=== PATIENT | male | born 1950 | race Caucasian/White ===

== ENCOUNTER → 2016-12-27 | Outpatient (CLI) | payer BC ==
[~2016-12-27] MED LIST: LISI20TA PO; LOVA20TA PO; PRIL20TA2
--- NOTE | 2016-12-27 17:20 | RADRPT ---
EXAM DATE/TIME: 12/27/2016 16:02 [facility] COMPARISON : No previous studies available for comparison. INDICATIONS : Evaluate for possible renal cryo-ablation . HISTORY OF PRESENT ILLNESS: 66-year-old with incidentally discovered 2.4 cm mass arising from the midpole the right kidney. The p atient underwent CT and MRI evaluation of this for workup. Imaging was presented for evaluation for p ossible cryoablation. IMAGING STUDIES: Post contrast CT imaging and MRI imaging of the abdomen performed 10/2016 at [facility] was reviewed. ASSESSMENT: There is a 2.4 cm enhancing mass arising from the posterior aspect of the midpole the right kidney. T his lesion would be readily amenable to cryoablation for treatment. PLAN: Patient will be scheduled for the procedure. TIME SPENT: 10 minutes. Raffaele Stanford MD on December 27, 2016 at 17:15 Board Certified Radiologist. This report was verified electronically.
== END ==
LOC: HRAD 15:07
PROVIDERS: ATTEND Urology
DX: N28.89 Other specified disorders of kidney and ureter (principal)

== ENCOUNTER 2017-01-05 12:27 | Day surgery (SDC) | payer BC ==
[2017-01-05 12:44] VITALS: BP 140/93; PULSE 66; RESP 20; TEMP 97.7; O2SAT 92
--- NOTE | 2017-01-05 13:49 | RADRPT ---
EXAM DATE/TIME: 01/05/2017 00:00 [facility] COMPARISON : INDICATIONS : Cryo Consult OBJECTIVE: Temperature: 97.7 Heart Rate: 66 Blood Pressure: 140/93 Respiratory: 20 Oximetry: 92 HISTORY OF PRESENT ILLNESS: 66 year-old with a 2.4 cm mass arising from the right kidney. Patient has undergone previous CT, MRI and biopsy. 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 PAST MEDICAL HISTORY : 1. Hypertension. 2. Hypercholesterolemia. 3. Prostate Ca 4. Renal Mass PAST SURGICAL HISTORY : 1. Prostatectomy 2. Bilateral Ing hernia repair 3. Arthroscopy Left knee 4. Choley 5. Cyst removal left neck 6. left tonsilectomy SOCIAL HISTORY : Social alcohol use. Tobacco;former. ALLERGIES: 1. NKDA MEDICATIONS: 1. Zestoretic (Lisinopril/HCTZ) 20/10 mg q.d. 2. Lovastatin 20 mg q.d. 3. Prilosec 20 mg q.d. 4. Vit B, C, D q.d. Physical examination: This was deferred. Patient had recent physical examination performed by Dr. Mayer. Patient denies linette st pain, shortness of breath or other significant medical symptoms. IMAGING STUDIES: The patient's outpatient CT scan and MRI have been reviewed. These confirm a 2.4 cm mass arising from the right kidney which has been previously biopsied and proven renal cell carcinoma. ASSESSMENT: 66 year-old with a 2.4 cm mass arising from the posterior aspect of the right kidney biopsy proven cl ear cell variant renal cell carcinoma grade 2/4. This lesion is in a location which would be amenable to cryoablation. PLAN: The patient will be scheduled for ablation of the right renal mass. TIME SPENT: 20 minutes Raffaele Stanford MD on January 05, 2017 at 13:42 Board Certified Radiologist. This report was verified electronically.
[2017-01-06] MEDS ORDERED: LOVA20TA PO (08:05)
[2017-01-06] MEDS ORDERED: LISI20TA PO (08:05)
[2017-01-06] MEDS ORDERED: PRIL20TA2 (08:05)
== END 2017-01-05 14:00 | disposition home or self-care (01) ==
LOC: HROP 12:27 → HRIP 12:31 → HROP 14:00
PROVIDERS: ATTEND Urology
DX: C64.1 Malignant neoplasm of right kidney, except renal pelvis (principal)

== ENCOUNTER 2017-01-06 07:30 | Day surgery (SDC) | payer BC ==
[~2017-01-06] VITALS: Ht 177.8 cm; Wt 93.2 kg
[2017-01-06] MEDS ORDERED: PRIL20TA2 (08:05)
[2017-01-06] MEDS ORDERED: LISI20TA PO (08:05)
[2017-01-06] MEDS ORDERED: LOVA20TA PO (08:05)
[2017-01-06 08:09] VITALS: BP 149/98; PULSE 62; RESP 20; TEMP 97.8; O2SAT 93
[2017-01-06] MEDS ORDERED: SODIUM CHLOR 0.9% 1000 ML INJ 1,000 ML IV SCH (08:30)
[2017-01-06] MEDS ORDERED: ceFAZolin 2 GM PREMIX 50 ML IV SCH (08:30)
[2017-01-06 09:05] LABS: BICARBONATE 24.5 MEQ/L (21.0-32.0); POTASSIUM 3.6 MEQ/L (3.5-5.1)
[2017-01-06] MEDS ORDERED: CHLORHEXIDINE GLUCONATE 2 % 1 PACK (2 CLOTHS) TOPICAL PRN (09:30)
[2017-01-06] MEDS ORDERED: POVIDONE IODINE 5% (ANTISEPSIS KIT) 4 APPLICATIONS EACH NARE PRN (09:30)
[2017-01-06] MEDS ORDERED: LACTATED RINGER'S 1000 ML IV PRN (09:30)
[2017-01-06] MEDS ORDERED: SODIUM CHLORID 0.9% 500 ML IV PRN (09:30)
[2017-01-06] MEDS ORDERED: INSULIN HUMAN REGULAR 1,000 UNITS/10 ML VIAL SQ PRN (09:30)
[2017-01-06] MEDS ORDERED: METOPROLOL TARTRATE 25 MG TAB PO PRN (09:30)
[2017-01-06] MEDS ORDERED: LIDOCAINE 1%/EPINEPHrine 1:100,000 SOLN 20 ML VIAL ONE (10:35)
--- NOTE | 2017-01-06 12:16 | PD.RAD ---
Post Procedure Progress Note Pre Procedure Diagnosis: (1) Cancer of right kidney, except renal pelvis Post Procedure Diagnosis: (1) Cancer of right kidney, except renal pelvis Procedure Date: Jan 06, 2017 Supervising Radiologist: Raffaele Stanford Anesthesia: General, Local Plan of Activity Patient to Unit: PACU Patient Condition: Good Additional Comments: PT post ablation of a 2cm right renal mass PT tolerated the procedure well. No complication evident on the follow up CT See PACS Report for procedural detail/treatment Raffaele Stanford MD Jan 06, 2017 12:16
[2017-01-06] MEDS ORDERED: DO NOT ADM ANY ANTICOAGULANT DRUGS PRN (12:40)
[2017-01-06] MEDS ORDERED: MIDAZOLAM HCL 2 MG/2 ML VIAL ONE (12:51)
[2017-01-06] MEDS ORDERED: fentaNYL CITRATE 250 MCG/5 ML AMP ONE (12:51)
[2017-01-06 13:23] LABS: AUTOMATED NEUTROPHIL # 5.3 TH/MM3 (1.8-7.7); BASOPHIL % 0.4 % (0.0-2.0); EOSINOPHIL # 0.2 TH/MM3 (0-0.4); EOSINOPHIL % 2.8 % (0.0-4.0); HEMATOCRIT 42.2 % (39.0-51.0); HEMO FLAGS DIFF FINAL; LYMPH % 20.7 % (9.0-44.0); LYMPHOCYTE # 1.6 TH/MM3 (1.0-4.8); MEAN CELL VOLUME 89.3 FL (80.0-100.0); MEAN CORPUSCULAR HEMOGLOBIN 30.2 PG (27.0-34.0); MEAN CORPUSCULAR HGB CONC 33.8 % (32.0-36.0); MONO % 9.6 % (0.0-8.0); NEUT % 66.5 % (16.0-70.0); PLATELET COUNT 159 TH/MM3 (150-450); RED BLOOD COUNT 4.72 MIL/MM3 (4.50-5.90); RED CELL DISTRIBUTION WIDTH 13.6 % (11.6-17.2); WHITE BLOOD COUNT 7.9 TH/MM3 (4.0-11.0)
[2017-01-06 13:30] VITALS: BP 112/72; PULSE 50; RESP 18; TEMP 97.5; O2SAT 97
--- NOTE | 2017-01-06 13:41 | RADRPT ---
EXAM DATE/TIME: 01/06/2017 11:15 INDICATIONS : Right renal mass. Anesthesia and pain control was provided by the Anesthesia department. DEVICE(S): 1.) Cryoablation probe 24mm MEDICAL HISTORY : Carcinoma, prostate. Renal cancer SURGICAL HISTORY : Cardiac surgery ENCOUNTER: Initial ACUITY: 1 day PAIN SCORE: 0/10 LOCATION: Right flank PROCEDURE : 1. CT guided cryoablation. Under sterile conditions and using aseptic technique with CT guidance the mass was localized and sati sfactory approach was taken to access the lesion. Using automated exposure control and adjustment of the mA and/or kV according to patient size, radiation dose was kept as low as reasonably achievable to obtain optimal diagnostic quality images. A single [employer] was advanced through the skin into the lesion without difficulty. A freeze-gil w, freeze-thaw technique was employed and serial imaging demonstrated an ice ball encompassing the en tire lesion. Post procedure images demonstrate expected postoperative changes without evidence of he matoma. CONCLUSION: Uncomplicated cryoablation as above. Raffaele Stanford MD on January 06, 2017 at 13:37 Board Certified Radiologist. This report was verified electronically.
--- NOTE | 2017-01-06 13:50 | EKG ---
Date Performed: 01/06/2017 Time Performed: 08:31:39 PTAGE: 66 years EKG: SINUS BRADYCARDIA RIGHT BUNDLE BRANCH BLOCK ABNORMAL ECG NO PREVIOUS TRACING DOCTOR: Alison Mueller Interpretating Date/Time 01/06/2017 13:44:11
[2017-01-06 14:00] VITALS: BP 116/73; PULSE 58; RESP 16; O2SAT 94
[2017-01-06 14:30] VITALS: BP 109/55; PULSE 60; RESP 18; O2SAT 91
[2017-01-06 15:14] LABS: AUTOMATED NEUTROPHIL # 8.7 TH/MM3 (1.8-7.7); BASOPHIL % 0.2 % (0.0-2.0); EOSINOPHIL # 0.1 TH/MM3 (0-0.4); EOSINOPHIL % 1.2 % (0.0-4.0); HEMATOCRIT 42.1 % (39.0-51.0); HEMO FLAGS DIFF FINAL; LYMPH % 11.3 % (9.0-44.0); LYMPHOCYTE # 1.2 TH/MM3 (1.0-4.8); MEAN CELL VOLUME 89.7 FL (80.0-100.0); MEAN CORPUSCULAR HEMOGLOBIN 30.3 PG (27.0-34.0); MEAN CORPUSCULAR HGB CONC 33.8 % (32.0-36.0); MONO % 5.8 % (0.0-8.0); NEUT % 81.5 % (16.0-70.0); PLATELET COUNT 173 TH/MM3 (150-450); RED BLOOD COUNT 4.69 MIL/MM3 (4.50-5.90); RED CELL DISTRIBUTION WIDTH 13.6 % (11.6-17.2); WHITE BLOOD COUNT 10.6 TH/MM3 (4.0-11.0)
[2017-01-06 15:30] VITALS: BP 118/57; PULSE 68; RESP 18; O2SAT 94
[2017-01-06 16:30] VITALS: BP 104/63; PULSE 62; RESP 18; O2SAT 95
== END 2017-01-06 17:00 | disposition home or self-care (01) ==
LOC: HRAD 07:30 → HRIP 07:31 → HRAD 17:00
PROVIDERS: ATTEND Urology
DX: C64.1 Malignant neoplasm of right kidney, except renal pelvis (principal); Z01.810 Encounter for preprocedural cardiovascular examination; Z01.818 Encounter for other preprocedural examination
CPT/HCPCS: 50593; 77013; 80048; 85025; 93005; C2618; J0690; J2250; J3010; J7030

== ENCOUNTER 2017-01-13 12:52 | Day surgery (SDC) | payer BC ==
[2017-01-13 13:00] VITALS: BP 129/83; PULSE 65; RESP 20; TEMP 98.4; O2SAT 95
== END 2017-01-13 13:20 | disposition home or self-care (01) ==
LOC: HROP 12:52 → HRIP 12:55 → HROP 13:20
PROVIDERS: ATTEND Radiology Body Imaging
DX: Z08 Encounter for follow-up examination after completed treatment for malignant neoplasm (principal)

== ENCOUNTER → 2017-12-05 | Outpatient (CLI) | payer OTHER, MEDICARE ==
--- NOTE | 2017-12-09 10:08 | RADRPT ---
EXAM DATE: 12/06/2017 10:38 AM EDT AGE/SEX: 67 years / Male INDICATIONS: Evaluate patient images and chart for possible RIGHT renal biopsy and ablation. The patient has a solid mass at margin of previously treated region in the posterior right kidney con sistent with local recurrence post previous cryoablation treatment. The recurrence does appear amenab le to repeat cryoablation. Electronically signed by: Jeyson Benitez MD 12/09/2017 10:07 AM EDT
== END ==
LOC: HRAD 16:15
PROVIDERS: ATTEND Urology
DX: N28.89 Other specified disorders of kidney and ureter (principal)

== ENCOUNTER 2017-12-20 07:08 | Day surgery (SDC) | payer OTHER ==
[~2017-12-20] VITALS: Ht 177.8 cm; Wt 93.2 kg
[2017-12-20 07:10] VITALS: BP 155/95; PULSE 60; RESP 20; TEMP 98.1; O2SAT 94
[2017-12-20] MEDS ORDERED: METOPROLOL TARTRATE 25 MG TAB PO PRN (07:45)
[2017-12-20] MEDS ORDERED: LACTATED RINGER'S 1000 ML IV PRN (07:45)
[2017-12-20] MEDS ORDERED: SODIUM CHLORID 0.9% 500 ML IV PRN (07:45)
[2017-12-20] MEDS ORDERED: LISI40TA PO (07:53)
[2017-12-20] MEDS ORDERED: HYDR12.57 PO (07:53)
[2017-12-20] MEDS ORDERED: LOVA20TA PO (07:53)
[2017-12-20] MEDS ORDERED: SODIUM CHLOR 0.9% 1000 ML INJ 1,000 ML IV SCH (08:00)
[2017-12-20] MEDS ORDERED: ceFAZolin 2 GM PREMIX 50 ML IV SCH ×2 (08:00)
[2017-12-20] MEDS ORDERED: VANCOMYCIN 1000 MG/NS 250 ML (for <70 kg) IV SCH ×2 (08:00)
[2017-12-20] MEDS ORDERED: CHLORHEXIDINE GLUCONATE 4% SOLN 120 ML BTL TOPICAL SCH (08:00)
[2017-12-20 08:12] LABS: AUTOMATED NEUTROPHIL # 5.7 TH/MM3 (1.8-7.7); BASOPHIL % 0.3 % (0.0-2.0); EOSINOPHIL # 0.2 TH/MM3 (0-0.4); EOSINOPHIL % 3.1 % (0.0-4.0); HEMATOCRIT 44.1 % (39.0-51.0); HEMOGLOBIN 15.1 GM/DL (13.0-17.0); LYMPH % 15.7 % (9.0-44.0); LYMPHOCYTE # 1.2 TH/MM3 (1.0-4.8); MEAN CELL VOLUME 88.8 FL (80.0-100.0); MEAN CORPUSCULAR HEMOGLOBIN 30.4 PG (27.0-34.0); MEAN CORPUSCULAR HGB CONC 34.2 % (32.0-36.0); MEAN PLATELET VOLUME 8.7 FL (7.0-11.0); MONOCYTE # 0.6 TH/MM3 (0-0.9); NEUT % 72.9 % (16.0-70.0); PLATELET COUNT 189 TH/MM3 (150-450); RED BLOOD COUNT 4.97 MIL/MM3 (4.50-5.90); RED CELL DISTRIBUTION WIDTH 13.5 % (11.6-17.2); WHITE BLOOD COUNT 7.8 TH/MM3 (4.0-11.0)
[2017-12-20 08:25] LABS: PROTHROMBIN TIME - PATIENT 10.4 SEC (9.8-11.6)
[2017-12-20 08:44] LABS: BICARBONATE 23.2 MEQ/L (21.0-32.0); CALCIUM 9.3 MG/DL (8.5-10.1); CREATININE 0.79 MG/DL (0.60-1.30)
[2017-12-20] MEDS ORDERED: IOHEXOL 350 MG/ML 10 ML VIAL (for RAD DIAG) IVCONTRAST ONE (10:45)
[2017-12-20] MEDS ORDERED: MIDAZOLAM HCL 2 MG/2 ML VIAL ONE (12:37)
[2017-12-20] MEDS ORDERED: MORPHINE SULFATE 4 MG/ML INJ ONE (12:38)
[2017-12-20 13:15] VITALS: BP 116/59; PULSE 61; RESP 16; TEMP 98.2; O2SAT 95
[2017-12-20] MEDS ORDERED: DO NOT ADM ANY ANTICOAGULANT DRUGS PRN (13:15)
[2017-12-20 13:30] VITALS: BP 102/58; PULSE 59; RESP 16; O2SAT 95
[2017-12-20 14:00] VITALS: BP 126/71; PULSE 59; RESP 16; O2SAT 95
[2017-12-20 14:08] LABS: AUTOMATED NEUTROPHIL # 11.3 TH/MM3 (1.8-7.7); BASOPHIL % 0.2 % (0.0-2.0); EOSINOPHIL % 0.3 % (0.0-4.0); HEMATOCRIT 43.4 % (39.0-51.0); HEMOGLOBIN 14.6 GM/DL (13.0-17.0); LYMPH % 4.3 % (9.0-44.0); LYMPHOCYTE # 0.5 TH/MM3 (1.0-4.8); MEAN CELL VOLUME 89.1 FL (80.0-100.0); MEAN CORPUSCULAR HEMOGLOBIN 30.1 PG (27.0-34.0); MEAN CORPUSCULAR HGB CONC 33.8 % (32.0-36.0); MEAN PLATELET VOLUME 8.9 FL (7.0-11.0); MONOCYTE # 0.2 TH/MM3 (0-0.9); NEUT % 93.2 % (16.0-70.0); PLATELET COUNT 189 TH/MM3 (150-450); RED BLOOD COUNT 4.87 MIL/MM3 (4.50-5.90); RED CELL DISTRIBUTION WIDTH 13.8 % (11.6-17.2); WHITE BLOOD COUNT 12.1 TH/MM3 (4.0-11.0)
[2017-12-20 14:30] VITALS: BP 128/72; PULSE 63; RESP 20
[2017-12-20 14:36] LABS: BANDS 11 % (0-6); LYMPHOCYTES 5 % (9-44); MONOCYTES 1 % (0-8); NEUTROPHIL # MANUAL DIFF 11.4 TH/MM3 (1.8-7.7); POLYS (SEG NEUTROPHILS) 83 % (16-70)
[2017-12-20 15:32] LABS: AUTOMATED NEUTROPHIL # 12.3 TH/MM3 (1.8-7.7); BASOPHIL % 0.1 % (0.0-2.0); EOSINOPHIL % 0.2 % (0.0-4.0); HEMOGLOBIN 14.7 GM/DL (13.0-17.0); LYMPH % 4.3 % (9.0-44.0); LYMPHOCYTE # 0.6 TH/MM3 (1.0-4.8); MEAN CELL VOLUME 89.1 FL (80.0-100.0); MEAN CORPUSCULAR HEMOGLOBIN 30.4 PG (27.0-34.0); MEAN CORPUSCULAR HGB CONC 34.1 % (32.0-36.0); MEAN PLATELET VOLUME 9.1 FL (7.0-11.0); MONO % 1.4 % (0.0-8.0); MONOCYTE # 0.2 TH/MM3 (0-0.9); PLATELET COUNT 190 TH/MM3 (150-450); RED BLOOD COUNT 4.82 MIL/MM3 (4.50-5.90); RED CELL DISTRIBUTION WIDTH 13.8 % (11.6-17.2)
--- NOTE | 2017-12-20 17:22 | RADRPT ---
EXAM DATE: 12/20/2017 1:07 PM EDT AGE/SEX: 67 years / Male INDICATIONS: Right renal mass CLINICAL DATA: This is the patient's initial encounter. Patient reports that signs and symptoms have been present for 1 day and indicates a pain score of 0/10. MEDICAL/SURGICAL HISTORY: Carcinoma, prostatic. Hypertension. None. COMPARISON: No prior [facility] exams available for comparison. BIOPSY SITE: Right renal Patient was premedicated per protocol for underlying contrast media allergy. DEVICE(S): 18 gauge Temno core biopsy needle One Prophylactic antibiotics were administered with appropriate pre-procedure timing. . . PROCEDURE: CT guided Right renal biopsy Prior to the procedure informed consent was obtained. Any appropriate prior imaging studies were rev iewed. Using automated exposure control and adjustment of the mA and/or kV according to patient size, radiat ion dose was kept as low as reasonably achievable to obtain optimal diagnostic quality images. DICOM format image data is available electronically for review and comparison. The site was prepped in a sterile fashion. Full sterile technique was used, including cap, mask, vineet rile gloves and gown and a large sterile sheet. Hand hygiene and 2% chlorhexidine and/or betadine/al cohol prep was utilized per protocol for cutaneous antisepsis. The skin and subcutaneous tissues wer e infiltrated with local anesthetic solution. With CT guidance the previously identified target was localized. Biopsy was performed using the presc ribed needle as above. The patient subsequently underwent cryoablation treatment of the lesion in question. Please see that separate report for further details. Follow-up CT scan reveals no hemorrhage. The patient tolerated the procedure well and there were no complications. The patient was returned to the Radiology Outpatient Unit in stable condition. CONCLUSION: Uncomplicated CT guided core biopsy of solid right renal mass as above.. Electronically signed by: Jeyson Benitez MD 12/20/2017 5:20 PM EDT
--- NOTE | 2017-12-20 17:25 | RADRPT ---
EXAM DATE: 12/20/2017 12:53 PM EDT AGE/SEX: 67 years / Male INDICATIONS: Right renal mass CLINICAL DATA: This is the patient's initial encounter. Patient reports that signs and symptoms have been present for 1 day and indicates a pain score of 0/10. MEDICAL/SURGICAL HISTORY: Carcinoma, prostatic. Hypertension. None. Anesthesia and pain control was provided by the Anesthesia department. DEVICE(S): 18 gauge perc 17 Cryoablation probe x2 Prophylactic antibiotics were administered with appropriate pre-procedure timing. . . COMPARISON: No prior [facility] exams available for comparison. PROCEDURE : 1. CT guided cryoablation. 2. 3. Under sterile conditions and using aseptic technique with CT guidance the mass was localized and sati sfactory approach was taken to access the lesion. Using automated exposure control and adjustment of the mA and/or kV according to patient size, radiation dose was kept as low as reasonably achievable to obtain optimal diagnostic quality images. DICOM format image data is available electronically for review and comparison. noodls Cryoprobes were employed using percutaneous technique employing the prescribed probes. A freeze-thaw, freeze-thaw technique was employed and serial imaging demonstrated an ice ball encomp assing the entire lesion. Post procedure images demonstrate expected postoperative changes without e vidence of hematoma. CONCLUSION: Uncomplicated cryoablation as above. Electronically signed by: Jeyson Benitez MD 12/20/2017 5:24 PM EDT
[2017-12-20] MEDS ORDERED: CLOPIDOGREL 75 MG TAB PO SCH (17:45)
[2017-12-20] MEDS ORDERED: ASPIRIN 81 MG CHEW TAB CHEW ONE (17:45)
== END 2017-12-20 18:00 | disposition home or self-care (01) ==
LOC: HRAD 07:08 → HRIP 07:13 → HRAD 18:00
PROVIDERS: ATTEND Urology
DX: C64.1 Malignant neoplasm of right kidney, except renal pelvis (principal); C61 Malignant neoplasm of prostate; I10 Essential (primary) hypertension; Z01.818 Encounter for other preprocedural examination
CPT/HCPCS: 50200; 50593; 77012; 77013; 80048; 85025; 85027; 85610; 85730; 88305; C2618; J2250; J2270; J3010; Q9967; 85007

== ENCOUNTER 2017-12-27 13:04 | Day surgery (SDC) | payer OTHER ==
[~2017-12-27 13:04] MED LIST changes: +HYDR12.57 PO; +LISI40TA PO
[2017-12-27 13:19] VITALS: BP 137/70; PULSE 80; RESP 18; TEMP 98.3; O2SAT 93
== END 2017-12-27 13:34 | disposition home or self-care (01) ==
LOC: HROP 13:04 → HRIP 13:06 → HROP 13:34
PROVIDERS: ATTEND Radiology Body Imaging
DX: C64.1 Malignant neoplasm of right kidney, except renal pelvis (principal)